=== PATIENT | female | born 1955 | race Caucasian/White ===

== ENCOUNTER 2021-03-21 15:52 | Emergency (ER) | payer MEDICAID ==
[~2021-03-21] VITALS: Ht 175.3 cm; Wt 75.0 kg
== END 2021-03-21 16:57 | disposition home or self-care (01) ==
LOC: ER 15:53
DX: S30.811A Abrasion of abdominal wall, initial encounter (principal); M54.50 Low back pain, unspecified; M25.552 Pain in left hip; W19.XXXA Unspecified fall, initial encounter; Z91.81 History of falling; Y93.89 Activity, other specified; Y92.89 Other specified places as the place of occurrence of the external cause; Y99.8 Other external cause status
CPT/HCPCS: 73502; 99284

== ENCOUNTER 2021-06-12 16:54 | Emergency (ER) | payer MEDICARE, MEDICAID ==
[~2021-06-12] VITALS: Ht 177.8 cm; Wt 70.5 kg
[2021-06-12 16:58] VITALS: BP 167/52
== END 2021-06-12 19:56 | disposition home or self-care (01) ==
LOC: ER 16:54
DX: S06.0X0A Concussion without loss of consciousness, initial encounter (principal); S00.211A Abrasion of right eyelid and periocular area, initial encounter; R51.9 Headache, unspecified; Z72.89 Other problems related to lifestyle; Z88.1 Allergy status to other antibiotic agents; W19.XXXA Unspecified fall, initial encounter; Y93.89 Activity, other specified; Y92.89 Other specified places as the place of occurrence of the external cause; Y99.8 Other external cause status
CPT/HCPCS: 70450; 99284

== ENCOUNTER 2023-05-29 15:49 | Emergency (ER) | payer MEDICARE, MEDICAID ==
[~2023-05-29] VITALS: Ht 175.3 cm; Wt 82.3 kg
[2023-05-29 15:50] VITALS: BP 115/60; TEMP 98
[2023-05-29 17:03] VITALS: PULSE 57; RESP 18; O2SAT 99
== END 2023-05-29 17:03 | disposition home or self-care (01) ==
LOC: ER 15:49
DX: S22.41XA Multiple fractures of ribs, right side, initial encounter for closed fracture (principal); Z88.1 Allergy status to other antibiotic agents; W01.0XXA Fall on same level from slipping, tripping and stumbling without subsequent striking against object, initial encounter; Y93.89 Activity, other specified; Y92.89 Other specified places as the place of occurrence of the external cause; Y99.8 Other external cause status
CPT/HCPCS: 71101; 99284

== ENCOUNTER 2024-04-08 16:58 | Emergency (ER) | payer MEDICARE, MEDICAID ==
[~2024-04-08] VITALS: Ht 167.6 cm; Wt 71.0 kg
[~2024-04-08 16:58] MED LIST: BETA45OI5 TOP; BREX1TAB PO; CALC625T9 PO; CHOL500044 PO; CLOB15OI17 TOP; CLON-850 PO; CLOT15CR73 TOP; DESO60CR2 TOP; DOCU-148 PO; LITH150C8 PO; METF-900 PO; MONT-40 PO; SERT25TA PO; SIMV-341 PO
[2024-04-08 18:20] LABS: BASOPHILS % (AUTO) 0.3 % (0-1); EOSINOPHILS # (AUTO) 0.1 X10'3 (0-0.9); EOSINOPHILS % (AUTO) 2.1 % (0-6); HEMATOCRIT 37.5 % (35.0-45.0); HEMOGLOBIN 12.7 g/dl (12.0-16.0); LYMPHOCYTES # (AUTO) 1.4 X10'3 (1.1-4.8); LYMPHOCYTES % (AUTO) 30.1 % (21-51); MEAN CORPUSCULAR HEMOGLOBIN 32.6 PG (27.0-31.0); MEAN CORPUSCULAR HGB CONC 33.8 g/dL (33.0-36.5); MEAN CORPUSCULAR VOLUME 96.3 FL (78-98); MEAN PLATELET VOLUME 6.8 FL (7.4-10.4); MONOCYTES # (AUTO) 0.5 X10'3 (0-0.9); MONOCYTES % (AUTO) 10.3 % (2-12); NEUTROPHILS # (AUTO) 2.6 X10'3 (1.8-7.7); NEUTROPHILS % (AUTO) 57.2 % (42-75); PLATELET COUNT 306 X10'3 (140-440); RED BLOOD COUNT 3.89 X10'6 (4.20-5.60); RED CELL DISTRIBUTION WIDTH 13.9 % (11.5-14.5); WHITE BLOOD COUNT 4.6 X10'3 (4.5-11.0)
[2024-04-08 18:33] LABS: ALANINE AMINOTRANSFERASE 24 U/L (12-78); ALBUMIN 3.8 G/DL (3.4-5.0); ALKALINE PHOSPHATASE 49 IU/L (46-116); ANION GAP 4 (8-16); ASPARTATE AMINO TRANSFERASE 17 U/L (10-37); BILIRUBIN,TOTAL 0.4 MG/DL (0.1-1.0); BLOOD UREA NITROGEN 22 MG/DL (7-18); BUN/CREATININE RATIO 29.3 (10.0-20.0); CALCIUM 10.2 MG/DL (8.5-10.1); CHLORIDE 102 MMOL/L (99-107); CREATININE 0.75 MG/DL (0.40-0.90); GLUCOSE 115 MG/DL (70-104); LIPASE 44 U/L (16-77); POTASSIUM 4.4 MMOL/L (3.5-5.1); SODIUM 137 MMOL/L (135-145); TOTAL CARBON DIOXIDE 30.8 MMOL/L (24-32); TOTAL PROTEIN 7.7 G/DL (6.4-8.2); eCRCL 68 ML/MIN; eGFR 77 ML/MIN
[2024-04-08 18:52] LABS: BILIRUBIN,URINE NEGATIVE (Neg); CLARITY,URINE CLEAR (Clear); COLOR,URINE YELLOW (Yellow); GLUCOSE, URINE NEGATIVE (Neg); KETONES,URINE NEGATIVE (Neg); LEUKOCYTE ESTERASE ,URINE NEGATIVE (Neg); NITRITES, URINE NEGATIVE (Neg); OCCULT BLOOD,URINE SMALL (Neg); PH,URINE 5.5 (4.8-8.0); PROTEIN,URINE NEGATIVE (Neg); UROBILINOGEN,URINE 0.2 E.U/dL (0.2-1.0)
[2024-04-08 18:57] LABS: UA COLLECTION TYPE CLN CATCH MIDSTREAM
[2024-04-08 18:59] LABS: BACTERIA,URINE FEW /HPF (Neg); RBC,URINE 0-2 /HPF (0-2); SQUAMOUS EPITHELIAL CELL,UR FEW /LPF (FEW); WBC,URINE 0-4 /HPF (0-4)
[2024-04-08] MEDS ORDERED: MAGN296S68 PO (21:42)
[2024-04-08 22:05] VITALS: BP 130/76; PULSE 70; RESP 16; TEMP 98; O2SAT 98
== END 2024-04-08 22:06 | disposition home or self-care (01) ==
LOC: ER 16:59
DX: K59.00 Constipation, unspecified (principal); Z88.1 Allergy status to other antibiotic agents; Z88.3 Allergy status to other anti-infective agents; Z79.899 Other long term (current) drug therapy
CPT/HCPCS: 36415; 74176; 80053; 81001; 83690; 85025; 99284

== ENCOUNTER 2024-05-22 18:35 | Emergency (ER) | payer MEDICARE, MEDICAID ==
[~2024-05-22] VITALS: Ht 175.3 cm; Wt 76.2 kg
[~2024-05-22 18:35] MED LIST changes: +MAGN296S68 PO
[2024-05-22 20:41] VITALS: BP 164/75; PULSE 60; RESP 16; TEMP 98.1; O2SAT 98
== END 2024-05-22 20:44 | disposition home or self-care (01) ==
LOC: ER 18:36
DX: R09.89 Other specified symptoms and signs involving the circulatory and respiratory systems (principal); Z88.1 Allergy status to other antibiotic agents; Z88.8 Allergy status to other drugs, medicaments and biological substances
CPT/HCPCS: 70360; 99283

== ENCOUNTER 2024-05-28 08:13 | Inpatient (IN) | payer MEDICARE, MEDICAID ==
[~2024-05-28] VITALS: Ht 175.3 cm; Wt 74.0 kg
[2024-05-28] MEDS: normal saline 1000ML IV soln IVB ONE (12:03)
[2024-05-28] MEDS: CefTRIAXone/D5W-Rocephin 1gm 50 ML IV ONE (12:23)
[2024-05-28 12:36] LABS: BASOPHILS % (AUTO) 0.1 % (0-1); EOSINOPHILS % (AUTO) 0.1 % (0-6); HEMATOCRIT 37.8 % (35.0-45.0); HEMOGLOBIN 12.7 g/dl (12.0-16.0); LYMPHOCYTES # (AUTO) 0.3 X10'3 (1.1-4.8); LYMPHOCYTES % (AUTO) 8.8 % (21-51); MEAN CORPUSCULAR HEMOGLOBIN 32.1 PG (27.0-31.0); MEAN CORPUSCULAR HGB CONC 33.5 g/dL (33.0-36.5); MEAN CORPUSCULAR VOLUME 95.8 FL (78-98); MEAN PLATELET VOLUME 6.6 FL (7.4-10.4); MONOCYTES # (AUTO) 0.4 X10'3 (0-0.9); NEUTROPHILS # (AUTO) 2.8 X10'3 (1.8-7.7); PLATELET COUNT 335 X10'3 (140-440); RED BLOOD COUNT 3.95 X10'6 (4.20-5.60); RED CELL DISTRIBUTION WIDTH 13.9 % (11.5-14.5); WHITE BLOOD COUNT 3.5 X10'3 (4.5-11.0)
[2024-05-28 12:52] LABS: ALBUMIN 3.1 G/DL (3.4-5.0); ANION GAP 14 (8-16); BLOOD UREA NITROGEN 44 MG/DL (7-18); BUN/CREATININE RATIO 27.3 (10.0-20.0); CALCIUM 9.5 MG/DL (8.5-10.1); CHLORIDE 105 MMOL/L (99-107); CREATININE 1.61 MG/DL (0.40-0.90); GLUCOSE 209 MG/DL (70-104); POTASSIUM 3.4 MMOL/L (3.5-5.1); SODIUM 141 MMOL/L (135-145); TOTAL CARBON DIOXIDE 21.9 MMOL/L (24-32); eCRCL 35 ML/MIN; eGFR 32 ML/MIN
[2024-05-28] MEDS: azithromycin/NS 500mg/250ml 250 ML IV ONE (12:52)
[2024-05-28] MEDS ORDERED: azithromycin/NS 500mg/250ml 250 ML IV SCH (13:00)
[2024-05-28] MEDS ORDERED: potassium Cl 20 mEq SR tablet PO PRN ×2 (13:40)
[2024-05-28] MEDS ORDERED: acetaminophen 325mg tablet PO PRN ×2 (13:40)
[2024-05-28] MEDS ORDERED: ondansetron/PF 4mg/2ml inj IV PRN (13:40)
[2024-05-28] MEDS ORDERED: magnesium sulf-water 4G/100mL 100 ML IV PRN (13:40)
[2024-05-28] MEDS ORDERED: magnesium Cl slow-release 64mg tablet PO PRN (13:40)
[2024-05-28] MEDS ORDERED: HYDROcodone/acetaminophen 5mg/325mg tablet PO PRN (13:40)
[2024-05-28] MEDS ORDERED: magnesium sulf-water 2g/50mL 50 ML IV PRN (13:40)
[2024-05-28] MEDS: normal saline 1000ml 1,000 ML IV SCH (14:20)
[2024-05-28 14:25] LABS: D-DIMER 1.06 MG/L FEU (0-0.50)
[2024-05-28] MEDS ORDERED: DEXTROSE 15 GM of carb/4 tabs (each vial/BOTTLE has 4 tablets) PO PRN ×2 (15:15)
[2024-05-28] MEDS ORDERED: dextrose 50%-water 50ml dispensing syringe IV PRN ×2 (15:15)
[2024-05-28] MEDS ORDERED: glucagon, human recombinant 1mg kit SUBCUT PRN (15:15)
[2024-05-28] MEDS: albuterol 2.5 MG/3 ML nebule NEB SCH (15:48)
[2024-05-28 15:53] VITALS: PULSE 68; RESP 20; O2SAT 93
[2024-05-28 16:00] VITALS: PULSE 73; RESP 24
[2024-05-28] MEDS: INSULIN LISPRO 100 UNIT/ML INSULN.PEN MULTI-DOSE SQ SCH (18:28)
[2024-05-28] MEDS: heparin, porcine 5000 units/ml vial SQ SCH (20:07)
[2024-05-28 20:17] VITALS: PULSE 80; RESP 20; O2SAT 95
[2024-05-28 20:22] VITALS: PULSE 76; RESP 18
[2024-05-28] MEDS: insulin glargine (Lantus) pen - multi-dose SQ SCH (22:24)
[2024-05-29] VITALS (14 sets, daily range): BP systolic 123–142; BP diastolic 55–68; PULSE 73–102; RESP 18–24; TEMP 97.1–98.5; O2SAT 94–99
[2024-05-29 03:17] LABS: URINE AMPHETAMINE SCREEN NEGATIVE (Neg); URINE BARBITUATE SCREEN NEGATIVE (Neg); URINE BENZODIAZEPINES SCREEN POSITIVE (Neg); URINE CANNABINOID SCREEN NEGATIVE (Neg); URINE COCAINE SCREEN NEGATIVE (Neg); URINE METHADONE SCREEN NEGATIVE (Neg); URINE OPIATE SCREEN NEGATIVE (Neg); URINE PHENCYCLIDINE SCREEN NEGATIVE (Neg)
[2024-05-29] MEDS: clonazePAM 0.5mg tablet PO ONE (04:06)
[2024-05-29 07:26] LABS: BASOPHILS % (AUTO) 0 % (0-1); EOSINOPHILS % (AUTO) 0.1 % (0-6); HEMATOCRIT 33.5 % (35.0-45.0); HEMOGLOBIN 11.1 g/dl (12.0-16.0); LYMPHOCYTES # (AUTO) 0.5 X10'3 (1.1-4.8); LYMPHOCYTES % (AUTO) 6.7 % (21-51); MEAN CORPUSCULAR HEMOGLOBIN 31.7 PG (27.0-31.0); MEAN CORPUSCULAR HGB CONC 33.1 g/dL (33.0-36.5); MEAN PLATELET VOLUME 6.8 FL (7.4-10.4); MONOCYTES # (AUTO) 0.5 X10'3 (0-0.9); MONOCYTES % (AUTO) 6.6 % (2-12); NEUTROPHILS # (AUTO) 6.5 X10'3 (1.8-7.7); NEUTROPHILS % (AUTO) 86.6 % (42-75); PLATELET COUNT 307 X10'3 (140-440); RED BLOOD COUNT 3.49 X10'6 (4.20-5.60); RED CELL DISTRIBUTION WIDTH 14.2 % (11.5-14.5); WHITE BLOOD COUNT 7.5 X10'3 (4.5-11.0)
[2024-05-29] MEDS ORDERED: azithromycin/NS 500mg/250ml 250 ML IV SCH (08:00)
[2024-05-29] MEDS ORDERED: magnesium citrate 296ml oral solution PO SCH (08:10)
[2024-05-29] MEDS ORDERED: clobetasol propionate ointment 15gm TP PRN (08:10)
[2024-05-29] MEDS ORDERED: clonazePAM 0.5mg tablet PO PRN (08:10)
[2024-05-29 08:22] LABS: ALBUMIN 2.5 G/DL (3.4-5.0); ANION GAP 12 (8-16); BLOOD UREA NITROGEN 36 MG/DL (7-18); BUN/CREATININE RATIO 40.4 (10.0-20.0); CALCIUM 8.8 MG/DL (8.5-10.1); CREATININE 0.89 MG/DL (0.40-0.90); GLUCOSE 160 MG/DL (70-104); POTASSIUM 3.3 MMOL/L (3.5-5.1); SODIUM 146 MMOL/L (135-145); TOTAL CARBON DIOXIDE 22.4 MMOL/L (24-32); eCRCL 64 ML/MIN; eGFR 63 ML/MIN
[2024-05-29 08:35] LABS: CHLORIDE 112 MMOL/L (99-107)
[2024-05-29] MEDS: CefTRIAXone 2gm/D5W 50ml BAG 50 ML IV SCH (13:02)
[2024-05-29] MEDS: azithromycin/NS 500mg/250ml 250 ML IV SCH (13:51)
[2024-05-29] MEDS: lithium carbonate 150mg capsule PO SCH (19:44)
[2024-05-29] MEDS: simvastatin 20mg tablet PO SCH (21:00)
[2024-05-29] MEDS: montelukast 10mg tablet PO SCH (21:00)
[2024-05-30] VITALS (9 sets, daily range): BP systolic 129–166; BP diastolic 57–85; PULSE 76–89; RESP 20–30; TEMP 97.5–101.4; O2SAT 92–96
[2024-05-30] MEDS: morphine 2 MG/ML inj. syringe IV PRN (01:19)
[2024-05-30] MEDS: acetaminophen 1,000mg/100ml IV 100 ML IV ONE (02:13)
[2024-05-30] MEDS: haloperidol lactate 5mg/ml inj IM ONE (02:13)
[2024-05-30 06:27] LABS: BASOPHILS % (AUTO) 0.1 % (0-1); EOSINOPHILS % (AUTO) 0.2 % (0-6); HEMATOCRIT 31.9 % (35.0-45.0); HEMOGLOBIN 10.9 g/dl (12.0-16.0); LYMPHOCYTES # (AUTO) 0.4 X10'3 (1.1-4.8); MEAN CORPUSCULAR HEMOGLOBIN 32.8 PG (27.0-31.0); MEAN CORPUSCULAR HGB CONC 34.2 g/dL (33.0-36.5); MEAN CORPUSCULAR VOLUME 95.7 FL (78-98); MEAN PLATELET VOLUME 6.8 FL (7.4-10.4); MONOCYTES # (AUTO) 0.5 X10'3 (0-0.9); MONOCYTES % (AUTO) 5.9 % (2-12); NEUTROPHILS # (AUTO) 7.2 X10'3 (1.8-7.7); NEUTROPHILS % (AUTO) 88.8 % (42-75); PLATELET COUNT 295 X10'3 (140-440); RED BLOOD COUNT 3.33 X10'6 (4.20-5.60); RED CELL DISTRIBUTION WIDTH 14.1 % (11.5-14.5); WHITE BLOOD COUNT 8.1 X10'3 (4.5-11.0)
[2024-05-30 07:04] LABS: ALBUMIN 2.3 G/DL (3.4-5.0); ANION GAP 12 (8-16); BLOOD UREA NITROGEN 17 MG/DL (7-18); BUN/CREATININE RATIO 23.3 (10.0-20.0); CALCIUM 8.6 MG/DL (8.5-10.1); CHLORIDE 117 MMOL/L (99-107); CREATININE 0.73 MG/DL (0.40-0.90); GLUCOSE 155 MG/DL (70-104); SODIUM 152 MMOL/L (135-145); TOTAL CARBON DIOXIDE 23.4 MMOL/L (24-32); eCRCL 78 ML/MIN; eGFR 80 ML/MIN
[2024-05-30] MEDS: cholecalciferol (vitamin D3) 1,000 unit (25mcg) tablet PO SCH (08:00)
[2024-05-30] MEDS: sertraline 50mg tablet PO SCH (08:00)
[2024-05-30] MEDS: DESONIDE 0.05% TOP SCH (08:00)
[2024-05-30] MEDS ORDERED: calcium polycarbophil 625mg tablet PO SCH (08:00)
[2024-05-30] MEDS: dextrose 5%-water 1,000 ML IV SCH (08:35)
[2024-05-30] MEDS: potassium 20mEq/D5LR 1,000 ML IV SCH (08:40)
[2024-05-30] MEDS: potassium Cl 20mEq in D5-NS 1,000 ML IV SCH (10:50)
[2024-05-30] MEDS: potassium Cl 40MEQ/1/2NS 520ml 520 ML IV PRN (11:23)
[2024-05-30 12:20] LABS: BILIRUBIN,URINE NEGATIVE (Neg); CLARITY,URINE CLEAR (Clear); COLOR,URINE YELLOW (Yellow); GLUCOSE, URINE NEGATIVE (Neg); KETONES,URINE >=80 mg/dl (Neg); LEUKOCYTE ESTERASE ,URINE NEGATIVE (Neg); NITRITES, URINE NEGATIVE (Neg); OCCULT BLOOD,URINE SMALL (Neg); PROTEIN,URINE 30 mg/dl (Neg); UROBILINOGEN,URINE 0.2 E.U/dL (0.2-1.0)
[2024-05-30 12:26] LABS: UA COLLECTION TYPE NON-SPECIFIED
[2024-05-30 12:28] LABS: SQUAMOUS EPITHELIAL CELL,UR FEW /LPF (FEW); WBC,URINE 0-4 /HPF (0-4)
[2024-05-30 12:29] LABS: BACTERIA,URINE 1+ /HPF (Neg); RBC,URINE 0-2 /HPF (0-2)
[2024-05-30 12:30] LABS: TRANSITIONAL EPI CELLS,URINE FEW /HPF
[2024-05-30] MEDS: metroNIDAZOLE-Flagyl 500mg/NS 100 ML IV SCH (12:41)
[2024-05-30] MEDS: vancomycin/NS 1 GM ADD-VANTAGE 250 ML IV SCH (12:41)
[2024-05-30] MEDS: nystatin 500,000 unit/5ML UD oral suspension PO SCH (12:53)
[2024-05-30] MEDS: diazepam inj 5 MG/ML inj. IV ONE (18:09)
[2024-05-30] MEDS: clotrimazole/betamethasone diproprion. cream 15gm TP SCH (21:55)
[2024-05-31] VITALS (29 sets, daily range): BP systolic 98–143; BP diastolic 48–73; PULSE 85–117; RESP 16–40; TEMP 97.6–103.3; O2SAT 74–95
[2024-05-31] MEDS: haloperidol lactate 5mg/ml inj IM ONE ×2 (03:48→21:00)
[2024-05-31 06:41] LABS: BASOPHILS % (AUTO) 0.1 % (0-1); EOSINOPHILS % (AUTO) 0.1 % (0-6); HEMATOCRIT 32.3 % (35.0-45.0); HEMOGLOBIN 10.9 g/dl (12.0-16.0); LYMPHOCYTES # (AUTO) 0.4 X10'3 (1.1-4.8); LYMPHOCYTES % (AUTO) 3.7 % (21-51); MEAN CORPUSCULAR HEMOGLOBIN 32.4 PG (27.0-31.0); MEAN CORPUSCULAR HGB CONC 33.6 g/dL (33.0-36.5); MEAN CORPUSCULAR VOLUME 96.3 FL (78-98); MEAN PLATELET VOLUME 6.9 FL (7.4-10.4); MONOCYTES # (AUTO) 0.6 X10'3 (0-0.9); NEUTROPHILS # (AUTO) 8.9 X10'3 (1.8-7.7); NEUTROPHILS % (AUTO) 90.1 % (42-75); PLATELET COUNT 297 X10'3 (140-440); RED BLOOD COUNT 3.35 X10'6 (4.20-5.60); RED CELL DISTRIBUTION WIDTH 14.5 % (11.5-14.5); WHITE BLOOD COUNT 9.8 X10'3 (4.5-11.0)
[2024-05-31 07:07] LABS: ALBUMIN 2.2 G/DL (3.4-5.0); ANION GAP 12 (8-16); BLOOD UREA NITROGEN 8 MG/DL (7-18); BUN/CREATININE RATIO 11.6 (10.0-20.0); CALCIUM 8.1 MG/DL (8.5-10.1); CHLORIDE 119 MMOL/L (99-107); CREATININE 0.69 MG/DL (0.40-0.90); GLUCOSE 233 MG/DL (70-104); POTASSIUM 3.2 MMOL/L (3.5-5.1); SODIUM 151 MMOL/L (135-145); TOTAL CARBON DIOXIDE 20.5 MMOL/L (24-32); eCRCL 83 ML/MIN; eGFR 85 ML/MIN
[2024-05-31 08:55] LABS: PLATELET ESTIMATE NORMAL; TOTAL CELLS COUNTED 100
[2024-05-31] MEDS: dextrose 5%-water 1,000 ML IV SCH (11:11)
[2024-05-31] MEDS ORDERED: [UNRECOGNIZED DRUG - CODE] TOP (11:34)
[2024-05-31] MEDS ORDERED: diazepam inj 5 MG/ML inj. IV ONE (12:45)
[2024-05-31 13:24] LABS: ABG BASE EXCESS -2.1 mmol/L (-2.0-3.0); ABG HCO3 20.5 mmol/L (21.0-28.0); ABG OXYGEN SATURATION 93.9 % (94.0-98.0); ABG PH (T) 7.482 (7.350-7.450); ALLEN'S TEST POSITIVE; FCOHb 0.3 % (0.5-1.5); FHHb 6.1 % (0.0-5.0); FMetHb 0.3 % (0.0-1.5); FO2Hb 93.3 % (94.0-98.0); MODE NASAL CANNULA; PATIENT TEMPERATURE 36.7; TOTAL HEMOGLOBIN 11.1 G/dl (12.0-16.0)
[2024-05-31] MEDS ORDERED: magnesium sulf-water 2g/50mL 50 ML IV PRN (18:25)
[2024-05-31] MEDS ORDERED: potassium Cl 40MEQ/1/2NS 520ml 520 ML IV PRN (18:25)
[2024-05-31] MEDS ORDERED: magnesium sulf-water 4G/100mL 100 ML IV PRN (18:25)
[2024-05-31] MEDS ORDERED: potassium Cl 20 mEq SR tablet PO PRN ×2 (18:25)
[2024-05-31] MEDS ORDERED: magnesium Cl slow-release 64mg tablet PO PRN (18:25)
[2024-05-31] MEDS: K and/or MAG REPLACEMENT MC SCH (20:00)
[2024-05-31 20:36] LABS: ABG BASE EXCESS -2.8 mmol/L (-2.0-3.0); ABG HCO3 21.1 mmol/L (21.0-28.0); ABG PH (T) 7.392 (7.350-7.450); ABG PO2 (T) 42.6 mmHg (83.0-108.0); ALLEN'S TEST Modified; FCOHb 0.4 % (0.5-1.5); FHHb 23.8 % (0.0-5.0); FLOW 15 L/min; FMetHb 0.3 % (0.0-1.5); FO2Hb 75.5 % (94.0-98.0); MODE MASK - NRB; PATIENT TEMPERATURE 38.5; TOTAL HEMOGLOBIN 12.1 G/dl (12.0-16.0)
[2024-05-31] MEDS: VANCOMYCIN LEVEL IV ONE (22:30)
[2024-06-01] VITALS (17 sets, daily range): BP systolic 80–147; BP diastolic 41–84; PULSE 72–106; RESP 18–35; TEMP 98.4–102.7; O2SAT 81–97
[2024-06-01] MEDS: acetaminophen 1,000mg/100ml IV 100 ML IV STA (00:35)
[2024-06-01 06:02] LABS: BASOPHILS % (AUTO) 0.1 % (0-1); EOSINOPHILS % (AUTO) 0 % (0-6); HEMATOCRIT 33.1 % (35.0-45.0); HEMOGLOBIN 10.9 g/dl (12.0-16.0); LYMPHOCYTES # (AUTO) 0.4 X10'3 (1.1-4.8); LYMPHOCYTES % (AUTO) 3.4 % (21-51); MEAN CORPUSCULAR HEMOGLOBIN 32.2 PG (27.0-31.0); MEAN CORPUSCULAR HGB CONC 32.9 g/dL (33.0-36.5); MEAN CORPUSCULAR VOLUME 97.7 FL (78-98); MONOCYTES # (AUTO) 0.5 X10'3 (0-0.9); MONOCYTES % (AUTO) 5.3 % (2-12); NEUTROPHILS # (AUTO) 9.5 X10'3 (1.8-7.7); NEUTROPHILS % (AUTO) 91.2 % (42-75); PLATELET COUNT 264 X10'3 (140-440); RED BLOOD COUNT 3.39 X10'6 (4.20-5.60); RED CELL DISTRIBUTION WIDTH 14.8 % (11.5-14.5); WHITE BLOOD COUNT 10.4 X10'3 (4.5-11.0)
[2024-06-01 06:10] LABS: ALBUMIN 1.9 G/DL (3.4-5.0); ANION GAP 10 (8-16); BLOOD UREA NITROGEN 13 MG/DL (7-18); BUN/CREATININE RATIO 10.8 (10.0-20.0); CALCIUM 7.8 MG/DL (8.5-10.1); CHLORIDE 121 MMOL/L (99-107); GLUCOSE 258 MG/DL (70-104); POTASSIUM 3.7 MMOL/L (3.5-5.1); SODIUM 153 MMOL/L (135-145); TOTAL CARBON DIOXIDE 22.4 MMOL/L (24-32); eCRCL 48 ML/MIN; eGFR 45 ML/MIN
[2024-06-01 09:56] LABS: OSMOLALITY 334 MOSM/K (280-300)
[2024-06-01] MEDS: desmopressin inj. 4 MCG in normal saline 100ml IV soln 100 ML IV ONE (11:25)
[2024-06-01] MEDS ORDERED: propofol 1000mg/100ml bottle 100 ML IV SCH (12:30)
[2024-06-01] MEDS ORDERED: FENTANYL-0.9 % NACL/PF 100 ML IV SCH (12:30)
[2024-06-01] MEDS ORDERED: propofol 1000mg/100ml bottle 0 ML IV ONE (12:30)
[2024-06-01] MEDS ORDERED: propofol 1000mg/100ml bottle 100 ML IV ONE (12:32)
[2024-06-01] MEDS ORDERED: FENTANYL-0.9 % NACL/PF 100 ML ONE (12:32)
[2024-06-01 12:58] LABS: ABG BASE EXCESS -6.3 mmol/L (-2.0-3.0); ABG HCO3 19.6 mmol/L (21.0-28.0); ABG OXYGEN SATURATION 90.2 % (94.0-98.0); ABG PCO2 (T) 40.5 mmHg (32.0-45.0); ABG PH (T) 7.303 (7.350-7.450); ABG PO2 (T) 62.8 mmHg (83.0-108.0); ALLEN'S TEST POSITIVE; FCOHb 0.3 % (0.5-1.5); FHHb 9.7 % (0.0-5.0); FMetHb 0.3 % (0.0-1.5); FO2Hb 89.7 % (94.0-98.0); MODE VENT - AC/PRVC; PEEP 12 cm H2O; RESPIRATORY RATE 18 b/min; TIDAL VOLUME 350 mL
[2024-06-01] MEDS ORDERED: rocuronium 10mg/ml inj IV ONE (13:00)
[2024-06-01] MEDS ORDERED: VANCOMYCIN/WATER FOR INJ (PEG) 1.25GM/250 ML IVPB IV SCH (13:00)
[2024-06-01] MEDS ORDERED: ALEN70TA80 PO (13:11)
[2024-06-01] MEDS ORDERED: LEVO100T9 PO (13:11)
[2024-06-01] MEDS ORDERED: DOCU-392 PO (13:11)
[2024-06-01] MEDS ORDERED: LITH300C PO (13:11)
[2024-06-01] MEDS ORDERED: SERT-434 PO (13:11)
[2024-06-01] MEDS ORDERED: BEXA75CA PO (13:11)
[2024-06-01] MEDS ORDERED: BREX3TAB PO (13:11)
[2024-06-01] MEDS ORDERED: morphine 10mg/ml inj. IV PRN (13:45)
[2024-06-01] MEDS ORDERED: LORazepam 2 mg/ml vial IV PRN (13:45)
[2024-06-01] MEDS ORDERED: morphine 4 MG/ML inj SYRINge ONE (14:03)
[2024-06-01] MEDS ORDERED: acetylcysteine 200 MG/ml 4ml vial INH SCH (20:00)
[2024-06-03] MEDS ORDERED: VANCOMYCIN LEVEL IV ONE (00:30)
== END 2024-06-01 14:22 | DRG 871 ==
LOC: ER 08:13 → ED HOLD 13:41 → ORTHO 4S 05-29 08:05 → CICU 2S 06-01 12:20
PROVIDERS: ADMIT Internal Medicine; ATTEND Internal Medicine
PROC: 0BH17EZ Insertion of Endotracheal Airway into Trachea, Via Natural or Artificial Opening (ICD-10-PCS; principal; 2024-06-01)
PROC: 5A1935Z Respiratory Ventilation, Less than 24 Consecutive Hours (ICD-10-PCS; 2024-06-01)
PROC: 5A09357 Assistance with Respiratory Ventilation, Less than 24 Consecutive Hours, Continuous Positive Airway Pressure (ICD-10-PCS; 2024-06-01)
DX: A41.9 Sepsis, unspecified organism (principal); E43 Unspecified severe protein-calorie malnutrition; J96.01 Acute respiratory failure with hypoxia; J18.9 Pneumonia, unspecified organism; E87.0 Hyperosmolality and hypernatremia; N17.9 Acute kidney failure, unspecified; B37.0 Candidal stomatitis; J98.11 Atelectasis; Z20.822 Contact with and (suspected) exposure to COVID-19; E03.9 Hypothyroidism, unspecified; D64.9 Anemia, unspecified; F42.9 Obsessive-compulsive disorder, unspecified; F31.9 Bipolar disorder, unspecified; E11.9 Type 2 diabetes mellitus without complications; E78.5 Hyperlipidemia, unspecified; E87.6 Hypokalemia; R22.1 Localized swelling, mass and lump, neck; Z79.899 Other long term (current) drug therapy; Z88.8 Allergy status to other drugs, medicaments and biological substances; Z88.1 Allergy status to other antibiotic agents; Z85.828 Personal history of other malignant neoplasm of skin; Z87.730 Personal history of (corrected) cleft lip and palate; Z79.84 Long term (current) use of oral hypoglycemic drugs; Z51.5 Encounter for palliative care; M81.0 Age-related osteoporosis without current pathological fracture; Z68.24 Body mass index [BMI] 24.0-24.9, adult; M46.40 Discitis, unspecified, site unspecified; K59.00 Constipation, unspecified
CPT/HCPCS: 36415; 36600; 70490; 71045; 71250; 72141; 80048; 80202; 80305; 81001; 82803; 82948; 83036; 83605; 83930; 84145; 84443; 84484; 85007; 85018; 85025; 85379; 85651; 87040; 87070; 87081; 87502; 87503; 87811; 92508; 92616; 93005; 93306; 94002; 94640; 94660; 94760; 96365; 96366; 96368; 96372; 97161; 97530; 99285; A4314; A4565; A4620; A4624; A6213; A6258; A6449; A9900; C1751; G0378; J0131; J0456; J0696; J1630; J1644; J1815; J2270; J2597; J3010; J3360; J3370; J3480; J3490; J7030; J7070; J7120